=== PATIENT | female | born 2000 | race American Indian/Alaskan Native ===

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

== ENCOUNTER 2020-07-29 13:29 | Outpatient (CLI) | payer MEDICAID ==
[2020-07-29] MEDS ORDERED: SILVER NITRATE APPLICATOR 1 EA TP SCH (14:00)
== END 2020-07-29 13:30 | disposition home or self-care (01) ==
LOC: WOUND 13:29
PROVIDERS: ATTEND Surgery
DX: K94.29 Other complications of gastrostomy (principal); L92.9 Granulomatous disorder of the skin and subcutaneous tissue, unspecified; R13.19 Other dysphagia; Y83.3 Surgical operation with formation of external stoma as the cause of abnormal reaction of the patient, or of later complication, without mention of misadventure at the time of the procedure; Y92.238 Other place in hospital as the place of occurrence of the external cause
CPT/HCPCS: 17250; G0463; 99214

== ENCOUNTER 2020-12-08 04:27 | Inpatient (IN) | payer MEDICAID ==
[2020-12-08] MEDS ORDERED: LACTATED RINGERS 1,000 ML ONE (04:55)
[2020-12-08] MEDS ORDERED: LACTATED RINGERS 1,000 ML IV SCH ×3 (05:00→08:30)
[2020-12-08] MEDS ORDERED: AMPICILLIN/NS 2 GM/100 ML 2 GM/100 ML BAG IV ONE (05:31)
[2020-12-08] MEDS ORDERED: ONDANSETRON 4 MG/2 ML INJ IV PRN ×2 (05:31→12:00)
[2020-12-08] MEDS ORDERED: LIDOCAINE (2%) 20 MG/1 ML VIAL 20 ML MDV INFILTRATI ONE (05:31)
[2020-12-08] MEDS ORDERED: CARBOPROST TROMETHAMINE 250 MCG/1 ML INJ IM PRN (05:31)
[2020-12-08] MEDS ORDERED: BUTORPHANOL 2 MG/1 ML INJ IV PRN (05:31)
[2020-12-08] MEDS ORDERED: METHYLERGONOVINE MALEATE 0.2 MG/ML VIAL IM PRN (05:31)
[2020-12-08] MEDS ORDERED: ACETAMINOPHEN 325 MG TAB PO PRN (05:31)
[2020-12-08] MEDS ORDERED: LOPERAMIDE 2 MG CAP PO PRN (05:31)
[2020-12-08] MEDS ORDERED: fentaNYL 100 MCG/2 ML INJ IV PRN (05:31)
[2020-12-08] MEDS ORDERED: OXYTOCIN 10 UNIT/1 ML INJ IM PRN (05:31)
[2020-12-08] MEDS ORDERED: ePHEDrine SULFATE 50 MG/1 ML INJ IV PRN (05:31)
[2020-12-08] MEDS ORDERED: TERBUTALINE 1 MG/1 ML INJ SUB-Q PRN (05:31)
[2020-12-08] MEDS ORDERED: MINERAL OIL 30 ML ORAL LIQD PO PRN (05:31)
[2020-12-08] MEDS ORDERED: miSOPROStol 200 MCG TAB PR PRN (05:31)
[2020-12-08] MEDS ORDERED: OXYTOCIN DRIP 30 UNITS/500 ML BAG IV SCH ×3 (06:00→18:30)
[2020-12-08 06:38] LABS: Hematocrit 35.5 % (30.3-42.9); Hemoglobin 11.9 gm/dl (10.1-14.3); Mean Corpuscular HGB Conc 34 % (30-34); Mean Corpuscular Volume 84 fl (79-97); Platelet Count 181 K/mm3 (140-440); Red Blood Count 4.21 M/mm3 (3.65-5.03); Red Cell Distribution Width 14.7 % (13.2-15.2)
[2020-12-08] MEDS ORDERED: FAMOTIDINE 20 MG/2 ML INJ IV ONE (08:22)
[2020-12-08] MEDS ORDERED: BICITRA ORAL LIQD 30ML PO ONE (08:22)
[2020-12-08] MEDS ORDERED: METOCLOPRAMIDE 10 MG/2 ML INJ IV ONE (08:22)
--- NOTE | 2020-12-08 08:28 | History and Physical Report ---
History of Present Illness Date of examination: 12/08/20 Date of admission: 12/08/20 05:31 Chief complaint: contractions, spontaneous deceleration in triage History of present illness: Pt is a 20 year old -[place] female primigravida ANTOINE 12/12/20 at 39w3d wh o presents with contractions and had a spontaneous deceleration while being observed in triage. She was admitted for induction. She reports irregular contractions and denies vaginal bleeding. She has had care at [facility] since 10 wks complicated by silent alpha thalassemia carrier status, and GBS positive status. Since admission, the patient has progressed to 4 cm, and has been ruptured with evidence of thick meconium. Past History Past Medical History: no pertinent history Past Surgical History: no surgical history - Obstetrical History Expected Date of Delivery: 12/12/20 Actual Gestation: 39 Week(s) 3 Day(s) : 1 Medications and Allergies Allergies Allergy/AdvReac Type Severity Reaction Status Date / Time No Known Allergies Allergy Unverified 01/23/18 13:24 Home Medications Medication Instructions Recorded Confirmed Last Taken Type Ibuprofen [Motrin] 600 mg PO Q6H PRN #12 tablet 01/23/18 Unknown Rx Penicillin V Potassium 500 mg PO Q8H 10 Days #30 tablet 01/23/18 Unknown Rx Active Meds: Active Medications Acetaminophen (Acetaminophen 325 Mg Tab) 650 mg PO Q4H PRN PRN Reason: Pain, Mild (1-3) Butorphanol Tartrate (Butorphanol 2 Mg/1 Ml Inj) 1 mg IV Q2H PRN PRN Reason: Pain, Moderate(4-6) LABOR PAIN Carboprost Tromethamine (Carboprost Tromethamine 250 Mcg/1 Ml Inj) 250 mcg IM ONCE PRN PRN Reason: Uterine Bleeding Citric Acid/Sodium Citrate (Bicitra Oral Liqd 30ml) 30 ml PO ONCE ONE Stop: 12/08/20 08:23 Ephedrine Sulfate (Ephedrine Sulfate 50 Mg/1 Ml Inj) 10 mg IV Q2M PRN PRN Reason: Hypotension Famotidine (Famotidine 20 Mg/2 Ml Inj) 20 mg IV ONCE ONE Stop: 12/08/20 08:23 Fentanyl (Fentanyl 100 Mcg/2 Ml Inj) 100 mcg IV Q2H PRN PRN Reason: Pain,Severe (7-10) LABOR PAIN Last Admin: 12/08/20 07:27 Dose: 100 mcg Documented by: Lactated Ringer's (Lactated Ringers) 1,000 mls @ 125 mls/hr IV DIRECT DON Oxytocin/Sodium Chloride (Pitocin/Ns 30 Unit/500ml) 30 units in 500 mls @ 40 mls/hr IV TITR DON; Protocol Lactated Ringer's (Lactated Ringers) 1,000 mls @ 2,250 mls/hr IV PREOP DON Stop: 12/09/20 08:57 Oxytocin/Sodium Chloride (Pitocin/Ns 30 Unit/500ml) 30 units in 500 mls @ 0 mls/hr IV TITR DON; Protocol Cefazolin Sodium (Ancef/Sterile Water 2 Gm/20 Ml) 2 gm in 20 mls @ 80 mls/hr IV PREOP NR; Protocol Loperamide HCl (Loperamide 2 Mg Cap) 2 mg PO ONCE PRN PRN Reason: give with Hemabate Methylergonovine Maleate (Methylergonovine Maleate 0.2 Mg/Ml Vial) 0.2 mg IM ONCE PRN PRN Reason: Uterine Bleeding Metoclopramide HCl (Metoclopramide 10 Mg/2 Ml Inj) 10 mg IV ONCE ONE Stop: 12/08/20 08:23 Mineral Oil (Mineral Oil 30 Ml Oral Liqd) 30 ml PO QHS PRN PRN Reason: Constipation Misoprostol (Misoprostol 200 Mcg Tab) 800 mcg ID ONCE PRN PRN Reason: Uterine Bleeding Ondansetron HCl (Ondansetron 4 Mg/2 Ml Inj) 4 mg IV Q8H PRN PRN Reason: Nausea And Vomiting Oxytocin (Oxytocin 10 Unit/1 Ml Inj) 10 unit IM ONCE PRN PRN Reason: Uterine Bleeding Terbutaline Sulfate (Terbutaline 1 Mg/1 Ml Inj) 0.25 mg SUB-Q ONCE PRN PRN Reason: Hyperstimulation/Hypertonicity Review of Systems All systems: negative - Vital Signs Vital signs: Vital Signs Pulse Pulse Ox 66 100 12/08/20 04:36 12/08/20 04:36 Temp Pulse Resp BP Pulse Ox 98.3 F 79 15 143/85 100 12/08/20 04:38 12/08/20 08:12 12/08/20 07:27 12/08/20 08:12 12/08/20 05:47 - Physical Exam Breasts: Positive: deferred Abdomen: Positive: soft (obese, gravid ) Uterus: Positive: enlarged (gravid ) Extremities: Positive: normal - Obstetrical FHR: category 2 Uterine Contraction Monitor Mode: External Cervical Dilatation: 4 Cervical Effacement Percentage: 80 station: -2 Uterine Contraction Pattern: Irregular Uterine Tone Measurement Phase: Resting Uterine Contraction Intensity: Strong/Firm Results Result Diagrams: 12/08/20 06:05 Abnormal lab results 12/08/20 Range/Units 06:05 WBC 13.4 H (4.5-11.0) K/mm3 All other labs normal. Assessment and Plan A: IUP at 39w3d Non reassuring status GBS positive Silent Alpha Thalassemia Carrier GBS Positive P: Admit to labor and delivery Routine intrapartum care Closely monitor maternal and status
[2020-12-08] MEDS ORDERED: BUPIVACAINE /DEX-WATER 0.75% (2 ML) AMPULE INFILTRATI ONE (08:38)
[2020-12-08] MEDS ORDERED: ONDANSETRON 4 MG/2 ML INJ ONE (08:38)
[2020-12-08] MEDS ORDERED: ceFAZolin/Water 2 GM/20 ML 2 GM/20 ML SYRINGE IV NR (09:00)
[2020-12-08] MEDS ORDERED: KETAMINE/STERILE WATER 50 MG/ML SYRINGE ONE (09:08)
[2020-12-08] MEDS ORDERED: propofoL 200 MG/20 ML VIAL IV ONE ×2 (09:08→09:24)
[2020-12-08] MEDS ORDERED: SUCCINYLCHOLINE CHLORIDE 200 MG/10 ML INJ MDV ONE (09:08)
[2020-12-08] MEDS ORDERED: dexAMETHasone 20 MG/5 ML VIAL ONE (09:42)
[2020-12-08] MEDS ORDERED: BUPIVACAINE/PF (0.5%) 5 MG/1 ML 30 ML VIAL INFILTRATI ONE (09:42)
[2020-12-08] MEDS ORDERED: KETOROLAC 30 MG/1 ML INJ ONE (09:42)
[2020-12-08] MEDS ORDERED: MIDAZOLAM 5 MG/5 ML INJ MDV IV ONE (10:01)
--- NOTE | 2020-12-08 10:38 | Procedure Note ---
OB Delivery Note - Delivery Date of Delivery: 12/08/20 Surgeon: FLOR DUNCAN Estimated blood loss: other (600 mL) - Section Preop diagnosis: nonreassuring FHR tracing Postop diagnosis: same section procedure: section, primary low transverse Disposition: PACU Narrative: Please see operative report - Infant A at 1 minute: 6 at 5 minutes: 8 Infant Gender: Female (2800g (6lb 2.7 oz) @ 0933 am)
--- NOTE | 2020-12-08 10:43 | Operative Report ---
Operative Report Operative Report: Date of procedure: December 08, 2020 Preoperative diagnosis: 1) IUP at 39w3d 2) Nonreassuring status- multiple deep prolonged decelerations to 60s remote from delivery 3) Obesity Postoperative diagnosis: Same Procedure: Primary low transverse section Surgeon: Fernanda Martinez M.D. Anesthesia: GETA Findings: 1) Viable female , Apgars 6 and 8, weight 2800 g, (6 lb 2.7 oz) in cephalic presentation. Thick Meconium . 2) Normal-appearing uterus ovaries and tubes Estimated blood loss: 600 mL IV fluids: 1200 mL Urine output: 50 mL, clear but cara colored at the end of the procedure Drains: [place] to gravity Specimens: None Complications:None. Counts correct x 3 Disposition: Stable to PACU Indication for procedure: Pt is a 20 year old primigravida at 39w3d presents with nonreassuring status remote from delivery. The decision was made to proceed to section. Operation in detail: After the risks, benefits, alternatives and complications were explained to the patient she gave informed consent for the procedure. She was subsequently taken to the operating room. Multiple attempts at regional anesthesia were unsuccessful. She was placed in the dorsal supine position with leftward tilt and prepped and draped in a normal sterile fashion. heart tones were n oted prior to incision. A timeout was performed. General endotracheal anesthesia induced without difficulty. A Pfannenstiel skin incision was made with the knife and carried down to the layer of the fascia with the Bovie. The fascia was incised in the midline and the fascial incision was extended bilaterally with the Bovie. The fascial incision was then stretched. The rectus muscles were then in the midline and partially transected for adequate visualization. The peritoneum was then entered bluntly. The peritoneal incision was extended with good visualization of the bladder. The peritoneal incision was then stretched. An Stephen retractor was placed. The bladder blade was then placed. The vesicouterine peritoneum was grasped with smooth pick ups and incised with Metzenbaum scissors. A bladder flap was then created digitally and the bladder blade was replaced. A transverse incision was made in the lower uterine segment with a knife and extended bilaterally with the bandage scissors. Amniotomy was performed with egress of meconium stained fluid. head delivered with some difficulty, followed by shoulders and body. bulb suctioned at delivery. Cord clamped and cut. handed to NICU staff in attendance. Cord blood was collected. The placenta was then delivered manually. The uterus was then exteriorized and cleared of all clots and debris. The hysterotomy was then reapproximated with 0 Monocryl in a running locked fashion. A second layer of the same suture was used in imbricating fashion. The hysterotomy was inspected and hemostasis was noted. The gutters were irrigated and cleared of all clots and debris. The hysterotomy was again inspected and noted to be hemostatic. Surgicel was placed over the hysterotomy. The Stephen retractor was removed. The uterus was placed back into the peritoneal cavity. The peritoneum was reapproximated with 0 Monocryl in a running fashion incorporating the rectus muscles. Surgicel was placed over the rectus muscles. The fascia was reapproximated with 0 Vicryl in a running fashion. The subcutaneous tissue was reapproximated with 3-0 Vicryl in a running fashion. The skin was reapproximated with 3-0 Monocryl in a subcuticular fashion. The incision was then covered with steri strips and a pressure dressing. The procedure was then ended. The patient tolerated the procedure well and was take n to the PACU in stable condition. All instrument, lap, and needle counts were correct 3.
--- NOTE | 2020-12-08 10:48 | Anesthesia Consultation ---
Anesthesia Consult and Med Hx Date of service: 12/08/20 - Airway Anesthetic Teeth Evaluation: Good ROM Head & Neck: Adequate Mental/Hyoid Distance: Adequate Mallampati Class: Class II Intubation Access Assessment: Good - Pulmonary Exam CTA: Yes - Cardiac Exam Cardiac Exam: RRR - Pre-Operative Health Status ASA Pre-Surgery Classification: ASA2 Proposed Anesthetic Plan: Epidural - Other Systems Hx Alcohol Use: No
--- NOTE | 2020-12-08 10:49 | Anesthesia Day of Surgery ---
Anesthesia Day of Surgery - Day of Surgery Patient Examined: Yes Patient H&P Reviewed: Yes Patient is NPO: Yes
--- NOTE | 2020-12-08 10:53 | Progress Note ---
Spinal Anesthesia Block - Spinal Anesthesia Block Start Time: 09:00 Stop Time: :15 Performed by:: TONY MCGRAW Procedure: Patient is requesting combined spinal epidural for labor and pain. H&P, labs were reviewed. All questions and concerns were answered. Informed consent was obtained. Timeout performed. Patient in sitting position on side of bed. Sterile prep and drape was performed. 3 mL 1% lidocaine skin wheal at L [3]-L [4]. 18-gauge Tuohy epidural needle advanced to but unable to get [id number] using air technique, []. 27-gauge spinal needle advanced, positive free-flowing no CSF. Spinal dose of. multiple attempts at Spinal/epidural with out success, decision made to convert to general anesthesia
--- NOTE | 2020-12-08 10:53 | Post Anesthesia Evaluation ---
- Post Anesthesia Evaluation Patient Participated: Yes Airway Patent: Yes Stable Respiratory Function: Yes Nausea/Vomiting: No Temp > 96.8F: Yes Pain Manageable: Yes Adequeate Hydration: Yes Anesthesia Complications: No Block Receding Appropriately: Yes Patient on Ventilator: No
--- NOTE | 2020-12-08 10:54 | Progress Note ---
Regional Anesthesia Block - Regional Anesthesia Block Start Time: 10:18 Stop Time: 10:31 Performed By:: TONY MCGRAW Procedure: Patient consented for TAP block for post surgical pain management. Patient identified, monitors placed, and time out performed. Mid axillary TAP identified bilaterally via ultrasound. Skin prepped bilaterally with [chlorhexidine] and [20g stimuplex] needle advanced to the TAP. 30ml [Marcaine 0.25% with 25mcg Precedex and Decadron 5mg] injected under ultrasound guidance on the [left] side. 30ml [Marcaine 0.25% with 25mcg Precedex and Decadron 5mg] injected under ultrasound guidance on the [right] side. Negative aspiration every 5mL, Patient tolerated the procedure well. No apparent complications seen.
[2020-12-08] MEDS ORDERED: KETOROLAC 30 MG/1 ML INJ IV PRN (12:00)
[2020-12-08] MEDS ORDERED: HYDROmorphone 1 MG/1 ML INJ IV PRN (12:00)
[2020-12-08] MEDS ORDERED: NALOXONE 0.4 MG/1 ML INJ IV PRN ×2 (12:00→18:30)
[2020-12-08] MEDS ORDERED: MORPHINE 2 MG/1 ML INJ IV PRN ×2 (12:00→18:30)
[2020-12-08] MEDS ORDERED: IBUPROFEN 800 MG TAB PO PRN (18:30)
[2020-12-08] MEDS ORDERED: WITCH HAZEL/ GLYCERIN PAD TP PRN (18:30)
[2020-12-08] MEDS ORDERED: D5W/LACTATED RINGERS 1,000 ML IV SCH (18:30)
[2020-12-08] MEDS ORDERED: LANOLIN/ZINC/DIMETHICONE (LANSINOH) 7 GM TP PRN (18:30)
[2020-12-08] MEDS ORDERED: SIMETHICONE 80 MG CHEW TAB PO PRN (18:30)
[2020-12-08] MEDS ORDERED: MORPHINE 4 MG/1 ML INJ IV PRN (18:30)
[2020-12-08] MEDS: ceFAZolin/NS 1 GM/50 ML 1 GM/50 ML BAG IV SCH (19:34)
[2020-12-08] MEDS: KETOROLAC 30 MG/1 ML INJ IV SCH (19:34)
[2020-12-09 00:51] LABS: Hematocrit 34.5 % (30.3-42.9); Hemoglobin 11.3 gm/dl (10.1-14.3)
[2020-12-09] MEDS: KETOROLAC 30 MG/1 ML INJ IV SCH (01:36)
[2020-12-09] MEDS: ceFAZolin/NS 1 GM/50 ML 1 GM/50 ML BAG IV SCH (03:50)
[2020-12-09] MEDS: oxyCODONE /ACETAMINOPHEN 5-325MG TAB PO PRN ×3 (06:48→22:07)
[2020-12-09] MEDS: PRENATAL VIT27-FE FUMARATE-FOLIC ACID VIT TAB PO SCH (09:23)
[2020-12-09] MEDS ORDERED: TETANUS,DIPH,PERTUSS(ACELL) VACCINE 0.5 ML SYRINGE IM ONE (10:44)
[2020-12-09] MEDS ORDERED: MEASLES, MUMPS & RUBELLA 12,500 UNIT/0.5 ML VACCINE SUB-Q ONE (10:44)
--- NOTE | 2020-12-09 15:04 | Progress Note ---
Assessment and Plan - Patient Problems (1) Status post primary low transverse section Current Visit: Yes Status: Acute Plan to address problem: Continue routine PP orders Keep dressing clean and dry, remove on POD#2 Anticipate d/c in 48 hrs (2) COVID-19 Current Visit: Yes Status: Acute Plan to address problem: Maintain covid precautions Subjective - Subjective Date of service: 12/09/20 Principal diagnosis: S/P primary C/S; POD#1 Interval history: maikel is a 20 year old -[place]arshallese female primigravida ANTOINE 12/12/20 at 39w3d who presents with contractions and had a spontaneous deceleration while being observed in triage. She was admitted for induction. She reports irregular contractions and denies vaginal bleeding. She has had care at [facility] since 10 wks complicated by silent alpha thalassemia carrier status, and GBS positive status. Post admission, the patient progressed to 4 cm, and ruptured with evidence of thick meconium. Had non-reassuring status remote from delivery. The deci merari was made to proceed to section. Patient reports: voiding normally, pain well controlled (with medications.), ambulating normally, other (Pt is fatigued and has small appetite.), no appetite normal : in NICU Objective - Vital Signs Latest vital signs: Vital Signs Temp Pulse Resp BP Pulse Ox Pulse Ox 12/09/20 12:47 98.1 F 73 18 129/65 100 12/09/20 12:46 16 12/09/20 08:31 97.8 F 71 16 123/70 99 12/09/20 08:09 100 12/09/20 06:48 18 12/09/20 01:36 18 12/08/20 19:50 98.3 F 68 18 129/58 99 12/08/20 19:40 99 12/08/20 19:34 18 Intake and Output 12/08/20 12/09/20 12/09/20 23:59 07:59 15:59 Intake Total 650 Output Total 350 450 Balance 300 -450 Intake: IV 50 ANCEF/NS 1 GM/50 ML 1 gm 50 In 50 ml @ 100 mls/hr IV Q8H [facility] Rx#:[id number] Oral 240 Intake, Free Water 360 Output: Urine 350 450 Void 350 450 Other: Total, Intake Amount 240 Total, Output Amount 350 450 # Voids Void 1 - Exam Breasts: Present: normal Cardiovascular: Present: Regular rate Lungs: Present: Normal air movement Abdomen: Present: soft, tenderness Uterus: Present: firm, fundal height below umbilicus (U-2) Deep Tendon Reflex Grade: Normal +2 Incision: Present: dressed (no shadow drainage or bleeding noted) - Labs Labs: Abnormal lab results 12/08/20 Range/Units 09:54 Coronavirus (PCR) Positive A (Negative)
[2020-12-10] MEDS ORDERED: TETANUS,DIPH,PERTUSS(ACELL) VACCINE 0.5 ML SYRINGE IM ONE (06:00)
[2020-12-10] MEDS: oxyCODONE /ACETAMINOPHEN 5-325MG TAB PO PRN ×2 (09:25→22:23)
[2020-12-10] MEDS: PRENATAL VIT27-FE FUMARATE-FOLIC ACID VIT TAB PO SCH (10:45)
--- NOTE | 2020-12-10 10:53 | Progress Note ---
Assessment and Plan - Patient Problems (1) Status post primary low transverse section Current Visit: Yes Status: Acute Plan to address problem: Continue routine PP orders Shower, remove dressing today, keep clean and dry Anticipate d/c in 24 hrs (2) COVID-19 Current Visit: Yes Status: Acute Plan to address problem: Maintain covid precautions Subjective - Subjective Date of service: 12/10/20 Principal diagnosis: S/P primary C/S; POD#2; Covid + Interval history: maikel is a 20 year old -[place] female primigravida ANTOINE 12/12/20 at 39w3d who presents with contractions and had a spontaneous deceleration while being observ ed in triage. She was admitted for induction. She reports irregular contractions and denies vaginal bleeding. She has had care at [facility] since 10 wks complicated by silent alpha thalassemia carrier status, and GBS positive status. Post admission, the patient progressed to 4 cm, and ruptured with evidence of thick meconium. Had non-reassuring status remote from delivery. The decision was made to proceed to section. Patient reports: appetite normal, voiding normally, pain well controlled (with medications), ambulating normally, no flatus : in NICU Objective - Vital Signs Latest vital signs: Vital Signs Temp Pulse Resp BP Pulse Ox Pulse Ox 12/10/20 00:24 98.3 F 76 18 138/82 100 12/09/20 22:07 20 12/09/20 19:50 98 12/09/20 17:34 98.2 F 72 16 128/70 100 12/09/20 12:47 98.1 F 73 18 129/65 100 12/09/20 12:46 16 Intake and Output 12/09/20 12/10/20 12/10/20 23:59 07:59 15:59 Intake Total 240 240 Balance 240 240 Intake: Intake, Free Water 240 240 Other: # Voids Void 1 1 - Exam Breasts: Present: normal Cardiovascular: Present: Normal S1 Lungs: Present: Normal air movement Abdomen: Present: soft, tenderness Uterus: Present: firm, fundal height below umbilicus (U-3) Extremities: Present: edema Deep Tendon Reflex Grade: Normal +2 Incision: Present: dressed (no shadow drainage or bleeding noted )
[2020-12-11 06:39] VITALS: BP 125/57
[2020-12-11] MEDS: oxyCODONE /ACETAMINOPHEN 5-325MG TAB PO PRN (11:56)
[2020-12-11] MEDS: PRENATAL VIT27-FE FUMARATE-FOLIC ACID VIT TAB PO SCH (11:57)
--- NOTE | 2020-12-11 15:31 | Progress Note ---
Assessment and Plan A: POD#3 s/p primary at term Obesity COVID-19 positive, asymptomatic P: Routine postop care Discharge today with follow up in 2 wks for an incision check Subjective - Subjective Date of service: 12/11/20 Principal diagnosis: S/P primary C/S; POD#3; Covid + Interval history: Pt without complaints. Reports good mood and that she is having more success with pumping. + flatus. No bowel movement. Patient reports: appetite normal, voiding normally, pain well controlled, flatus, ambulating normally, no bowel movement Wallace: in NICU Objective - Vital Signs Latest vital signs: Vital Signs Temp Pulse Resp BP Pulse Ox Pulse Ox 12/10/20 23:23 18 12/10/20 22:23 18 12/10/20 21:09 98.0 F 70 18 125/57 99 12/10/20 20:45 98 12/10/20 15:48 88 138/83 100 Intake and Output 12/11/20 12/11/20 12/11/20 06:59 14:59 22:59 Intake Total 480 Balance 480 Intake: Intake, Free Water 480 Other: # Voids Void 1 - Exam Breasts: Present: deferred Abdomen: Present: soft (obese) Uterus: Present: fundal height below umbilicus Extremities: Present: edema (trace)
--- NOTE | 2020-12-11 15:31 | Discharge Summary ---
Providers - Providers Date of Admission: 12/08/20 05:31 Date of discharge: 12/11/20 Attending physician: PIEDAD RAMOS 12/08/20 17:41 Consult to Resident In Diagnostic Radiology [CONS] Routine Reason For Exam: Primary care physician: PIEDAD RAMOS Hospitalization Reason for admission: other (Nonreassuring status ) Delivery: Procedure: section, primary low transverse Procedure details: Please see operative report. Incision: intact Other procedures: none complications: none Discharge diagnosis: IUP at term delivered baby: female Hospital course: Pt was admitted for contractions and nonreassuring status at term. She went on to have a primary section which she tolerated well. Her postoperative course was complicated by finding of COVID 19 positive status on routine testing. The remainder of her postop course was uncomplicated and she met discharge criteria on POD#3. She will follow up in 2 wks for an incision check in 2 wks with a negative COVID test. Condition at discharge: Stable Disposition: 01 HOME / SELF CARE / HOMELESS - Discharge Diagnoses (1) Obesity Status: Acute Qualifiers: Obesity type: unspecified obesity type Obesity classification: adult class 2 (BMI 35 - 39.9) Body mass index: BMI 37.0-37.9 (2) COVID-19 Status: Acute (3) Status post primary low transverse section Status: Acute Plan - Discharge Medications Prescriptions: Ibuprofen [Motrin] 800 mg PO Q8HR PRN #30 tablet PRN Reason: Pain, Moderate (4-6) oxyCODONE /ACETAMINOPHEN [Percocet 5/325] 1 tab PO Q6HR PRN #30 tablet PRN Reason: Pain - Provider Discharge Summary Activity: routine, no sex for 6 weeks, no heavy lifting 4 weeks, no strenuous exercise Diet: routine Instructions: routine Additional instructions: [] Smoking cessation referral if applicable(refer to patient education folder for contact #) [] Refer to [facility]'s [facility] Booklet Call your doctor immediately for: * Fever > 100.5 * Heavy vaginal bleeding ( >1 pad per hour) * Severe persistent headache * Shortness of breath * Reddened, hot, painful area to leg or breast * Drainage or odor from incision. * Keep incision clean and dry at all times and follow doctor's instructions regarding bathing/showering - Follow up plan Follow up: [facility], [employer] [Advanced Practice Nurse] - 14 Days (Please call to schedule an incision check appt in 2 weeks, with a negative COVID test)
[2020-12-11] MEDS ORDERED: LACTULOSE 20 GM/30 ML ORAL LIQD PO ONE (16:00)
== END 2020-12-11 19:56 | disposition home or self-care (01) | DRG 765 ==
LOC: TRG 04:27 → APU 04:28 → LD 05:31 → TRG 05:31 → OB 13:57
PROVIDERS: ADMIT Obstetrics & Gynecology; ATTEND Obstetrics & Gynecology
PROC: 10D00Z1 Extraction of Products of Conception, Low, Open Approach (ICD-10-PCS; principal; 2020-12-08)
PROC: 3E0234Z Introduction of Serum, Toxoid and Vaccine into Muscle, Percutaneous Approach (ICD-10-PCS; 2020-12-09)
PROC: 3E0134Z Introduction of Serum, Toxoid and Vaccine into Subcutaneous Tissue, Percutaneous Approach (ICD-10-PCS; 2020-12-09)
DX: O76 Abnormality in fetal heart rate and rhythm complicating labor and delivery (principal); U07.1 COVID-19; O99.824 Streptococcus B carrier state complicating childbirth; O98.53 Other viral diseases complicating the puerperium; O99.214 Obesity complicating childbirth; E66.9 Obesity, unspecified; D56.3 Thalassemia minor; O75.89 Other specified complications of labor and delivery; Z23 Encounter for immunization; Z3A.39 39 weeks gestation of pregnancy; Z37.0 Single live birth
CPT/HCPCS: 36415; 59025; 85014; 85018; 85027; 86592; 86850; 86900; 86901; 96360; 99211; G0378; G0463; J0330; J0690; J1100; J1885; J2250; J2405; J2704; J2765; J3010; J3490; J7120; U0003